=== PATIENT | female | born 1995 ===

== ENCOUNTER 2020-09-28 10:01 | Emergency (ER) | payer SELFPAY ==
[~2020-09-28] VITALS: Ht 157.5 cm; Wt 40.8 kg
[2020-09-28 10:03] VITALS: Ht 157.5 cm; Wt 40.8 kg
== END 2020-09-28 10:25 | disposition left against medical advice (07) ==
LOC: ED 10:01
DX: Z53.21 Procedure and treatment not carried out due to patient leaving prior to being seen by health care provider (principal)